=== PATIENT | male | born 1960 | race Caucasian/White ===

== ENCOUNTER 2019-10-19 15:24 | Outpatient (CLI) | payer MEDICARE, SELFPAY ==
--- NOTE | ~2019-10-19 | CT_ITS ---
EXAMINATION:CT lung screening DATE: 10/19/2019 16:03 INDICATION: Personal history of tobacco dependence. Current smoker with 30 pack year history. TECHNIQUE: Computed tomography (CT) of the chest was performed without intravenous contrast. Automate d exposure control and iterative reconstruction technique were employed. The dose-length product (DLP ) was 138.37 mGy-cm. COMPARISON: None. FINDINGS: There is mild emphysema. There is a 5 mm nodule in right middle lobe. There are 5 mm and 2 mm nodules in right lower lobe. There is mild atelectasis bilaterally. There is a 4 mm nodule in left upper lobe. There is a 3 mm nodule in left lower lobe. No pleural effusion. No pleural effusion. The heart size is normal. There is a small pericardial effusion. There are no pathologically enlarged ly mph nodes. There are 2.4 cm and 2.2 cm subepidermal masses in the posterior thorax, likely sebaceous cysts. There is mild thoracic spondylosis. IMPRESSION: 1. Lung-RADS category 2: Benign appearance or behavior. Continue annual screening with noncontrast lo w-dose chest CT in 12 months. Reviewed, dictated and finalized at location A. ERCIAL UNDERWRITER IMPRESSION: 1. Lung-RADS category 2: Benign appearance or behavior. Continue annual screeni ng with noncontrast low-dose chest CT in 12 months.
== END 2019-10-19 15:25 | disposition home or self-care (01) ==
PROVIDERS: PCP Internal Medicine; Visit Provider Nurse Practitioner
DX: Z12.2 Encounter for screening for malignant neoplasm of respiratory organs (principal); Z87.891 Personal history of nicotine dependence
CPT/HCPCS: G0297

== ENCOUNTER 2020-03-28 13:51 | Outpatient (CLI) | payer MEDICARE, SELFPAY ==
--- NOTE | 2020-03-28 14:21 | ECHO_ITS ---
Patient Info Name: Clifford Elias Age: 59 years : 1960 Gender: Male Ht: 68 in Wt: 182 lbs BSA: 2.01 m2 BP: 131 / 88 mmHg Technical Quality: Good Exam Date: 03/28/2020 2:33 PM Exam Location: [facility] Patient Status: Outpatient Admit Date: 03/28/2020 Staff Ordering Physician: Susana Berg Home Appliance Washing Machine Mechanic: Richard Jimenez RDCS, RT Attending Provider: Susana Berg Referring Physician: Morena FENTON; Exam Type: CA echo doppler color flow Study Info Indications R06.02 - Shortness of breath Complete two-dimensional, color flow and Doppler transthoracic echocardiogram is performed. Summary 1. Left ventricular chamber dimension is normal. 2. Left ventricular systolic function is normal, estimated at 65-70%. 3. The left ventricular diastolic function is grade II diastolic dysfunction. 4. E/e' 9 is minimally elevated. 5. Global longitudinal strain is abnormal at -13.9%. 6. There is trace pulmonic regurgitation. Left Ventricle E/e' 9 is minimally elevated. Global longitudinal strain is abnormal at -13.9%. Left ventricular chamber dimension is normal. Left ventricular systolic function is normal, estimated at 65-70%. The left ventricular diastolic function is grade II diastolic dysfunction. Right Ventricle Right ventricular chamber dimension is normal. Right ventricular systolic function is normal. Left Atria Left atrial chamber dimension is normal. Right Atria Right atrial chamber dimension is normal. Aortic Valve The aortic valve is trileaflet. There is no aortic valve stenosis. There is no aortic valve regurgitation. Pulmonic Valve There is trace pulmonic regurgitation. Mitral Valve There is no mitral valve stenosis. There is no mitral valve regurgitation. Tricuspid Valve There is no tricuspid valve regurgitation. Pericardium/Pleural There is no pericardial effusion. Inferior Vena Cava Normal inferior vena cava with >50% collapse upon inspiration consistent with normal right atrial pressure, 5 mmHg. Aorta The aortic root size at the sinus of Valsalva is normal. Left Ventricular Outflow Tract Name Value Normal LVOT 2D LVOT Diameter 2.1 cm LVOT Doppler LVOT Peak Gradient 4 mmHg LVOT Mean Gradient 2 mmHg LVOT VTI 19 cm LVOT VTI/AV VTI Ratio 0.8 LVOT Stroke Volume 67 ml LVOT CO 5.4 l/min LVOT CI 2.7 l/min/m2 Mitral Valve Name Value Normal MV Doppler MV Decel [place] 286 cm/s2 MV PHT 69 ms MV Area (PHT) 3.2 cm2 4.0-5.0 MV Diastolic Function
== END 2020-03-28 13:52 | disposition home or self-care (01) ==
PROVIDERS: PCP Internal Medicine; Visit Provider Clinical Nurse Specialist
DX: R06.02 Shortness of breath (principal)
CPT/HCPCS: 93306